=== PATIENT | female | born 1980 | race Caucasian/White ===

== ENCOUNTER 2016-10-25 11:05 | Emergency (ER) | payer OTHER ==
[~2016-10-25] VITALS: Ht 165.1 cm; Wt 143.3 kg
[~2016-10-25 11:05] MED LIST: AMITRIPTYLINE H10 MG PO; BACTRIM DS TAB1 EACH PO; DAYPRO600 MG PO; IBUPROFEN800 MG PO; KEFLEX500 MG PO; METFORMIN HCL1000 MG PO; NAPROSYN500 MG PO; NORCO 7.5-3251 EACH PO; VALIUM5 MG PO
[2016-10-25] MEDS ORDERED: METHYLPREDNISOLO4 M1 PO (12:00)
[2016-10-25] MEDS ORDERED: IBUPROFEN600 MG PO (23:31)
[2016-10-25] MEDS ORDERED: TRAMADOL HCL50 MG PO (23:49)
== END 2016-10-25 12:18 | disposition home or self-care (01) ==
LOC: ED 11:05
DX: M25.512 Pain in left shoulder (principal); E66.9 Obesity, unspecified; Z90.49 Acquired absence of other specified parts of digestive tract
CPT/HCPCS: 99283

== ENCOUNTER 2016-10-25 23:17 | Emergency (ER) | payer OTHER ==
[~2016-10-25] VITALS: Ht 165.1 cm; Wt 143.3 kg
[~2016-10-25 23:17] MED LIST changes: +METHYLPREDNISOLO4 M1 PO
[2016-10-25] MEDS ORDERED: IBUPROFEN600 MG PO (23:31)
[2016-10-25] MEDS ORDERED: TRAMADOL HCL50 MG PO (23:49)
== END 2016-10-26 00:30 | disposition home or self-care (01) ==
LOC: ED 23:17
DX: M75.52 Bursitis of left shoulder (principal); N83.209 Unspecified ovarian cyst, unspecified side; Z90.49 Acquired absence of other specified parts of digestive tract; Z79.52 Long term (current) use of systemic steroids
CPT/HCPCS: 73030; 99283

== ENCOUNTER 2017-01-18 15:57 | Emergency (ER) | payer SELFPAY ==
[~2017-01-18] VITALS: Ht 165.1 cm; Wt 143.3 kg
[~2017-01-18 15:57] MED LIST changes: +IBUPROFEN600 MG PO; +TRAMADOL HCL50 MG PO
== END 2017-01-18 16:14 | disposition home or self-care (01) ==
LOC: ED 15:57
DX: S69.91XA Unspecified injury of right wrist, hand and finger(s), initial encounter (principal); Z00.8 Encounter for other general examination; X58.XXXA Exposure to other specified factors, initial encounter

== ENCOUNTER 2019-04-04 16:02 | Emergency (ER) | payer OTHER ==
[~2019-04-04] VITALS: Ht 165.1 cm; Wt 154.2 kg
--- OUTSIDE RECORDS SUMMARY | 2019-04-04 16:04 | XMS ---
PreManage Notification: KAUR CHAPARRO Security Compliance Paralegal Events No recent Security Events currently on file CRITERIA MET - Group Notification CARE PROVIDERS There are no care providers on record at this time. Jyothi has no Care Guidelines for this patient. Dang VISIT COUNT (12 MO.) 1 AUGUST Xie TOTAL 1 NOTE: Visits indicate total known visits. ED/C VISIT TRACKING (12 MO.) 04/04/2019 16:03 AUGUST Sun OR TYPE: Emergency COMPLAINT: - LEFT ANKLE INJURY INPATIENT VISIT TRACKING (12 MO.) No inpatient visits to display in this time frame [email or web address]
== END 2019-04-04 18:05 | disposition home or self-care (01) ==
LOC: ED 16:02
DX: S93.402A Sprain of unspecified ligament of left ankle, initial encounter (principal); X50.9XXA Other and unspecified overexertion or strenuous movements or postures, initial encounter; E66.9 Obesity, unspecified
CPT/HCPCS: 73610; 99283

== ENCOUNTER 2024-06-08 09:36 | Emergency (ER) | payer OTHER ==
[~2024-06-08] VITALS: Ht 165.1 cm; Wt 119.2 kg
[2024-06-08] MEDS ORDERED: MELOXICAM15 MG PO (09:46)
[2024-06-08] MEDS ORDERED: SUMATRIPTAN SUC25 MG PO (09:46)
[2024-06-08] MEDS ORDERED: PHENTERMINE HCL15 MG PO (09:46)
[2024-06-08] MEDS ORDERED: diphenhydrAMINE HCL 50 MG/ML VIAL IV ONE (10:15)
[2024-06-08] MEDS ORDERED: SODIUM CHLORIDE 0.9% 1,000 ML IV PRN (10:15)
[2024-06-08] MEDS ORDERED: PROCHLORPERAZINE EDISYLATE 10 MG/2 ML VIAL IV ONE (10:15)
[2024-06-08] MEDS ORDERED: KETOROLAC TROMETHAMINE 15 MG/ML VIAL IV ONE (10:15)
[2024-06-08 12:09] VITALS: BP 136/80
== END 2024-06-08 12:12 | disposition home or self-care (01) ==
LOC: ED 09:36
DX: G43.909 Migraine, unspecified, not intractable, without status migrainosus (principal); E66.9 Obesity, unspecified; Z68.41 Body mass index [BMI] 40.0-44.9, adult; Z79.899 Other long term (current) drug therapy
CPT/HCPCS: 96374; 96375; 99283-25; J0780; J1200; J1885; J7030